=== PATIENT | male | born 1975 | race Caucasian/White ===

== ENCOUNTER 2017-12-04 14:35 | Emergency (ER) | payer SELFPAY ==
[~2017-12-04] VITALS: Ht 167.6 cm; Wt 100.3 kg
[2017-12-04 14:39] VITALS: BP 211/98; PULSE 101; RESP 16; TEMP 97.3; O2SAT 97
[2017-12-04] MEDS ORDERED: NAPR220C22 PO (15:04)
[2017-12-04 15:09] VITALS: BP 149/81
[2017-12-04] MEDS ORDERED: SODIUM CHLORIDE 0.9% FLUSH 10 ML FLUSH IVF PRN (16:00)
[2017-12-04] MEDS ORDERED: ASPIRIN 81 MG CHEW TAB CHEW ONE (16:00)
--- NOTE | 2017-12-04 16:13 | PD ---
HPI Chief Complaint: Pain: Acute or Chronic Time Seen by Provider: 15:49 Travel History International Travel<30 days: No Contact w/Intl Traveler<30days: No Traveled to known affect area: No History of Present Illness HPI 42-year-old male here for evaluation of left upper back and left flank pain. Patient reports that he has had this pain intermittently for the last week and reports that it usually occurs after eating lunch. He describes the pain as pressure, radiates to his anterior left chest, constant, worse with movements, improved with rest. He denies trauma. No fevers or recent illness. No cough or hemoptysis. No urinary symptoms. He quit smoking 2 years ago after smoking for 14 years. No known history of cardiac disease. No family history of cardiac disease. No history of DVT or PE. No paresthesias or motor deficits. PFSH Past Medical History Hx Anticoagulant Therapy: No Diabetes: No Diminished Hearing: No Influenza Vaccination: No ?: Not Past Surgical History Surgical History: No Previous Surgery Social History Alcohol Use: Yes Tobacco Use: No Allergies-Medications (Allergen,Severity, Reaction): Coded Allergies: No Known Allergies (Unverified , 12/04/17) Reported Meds & Prescriptions Reported Meds & Active Scripts Active Reported Aleve (Naproxen Sodium) 220 Mg Capsule 220 Mg PO DAILY Review of Systems Except as stated in HPI: all other systems reviewed are Neg Physical Exam Narrative GENERAL: Well-developed, well-nourished, awake, alert, comfortable, no apparent distress. SKIN: Focused skin assessment warm/dry. No rash. HEAD: Atraumatic. Normocephalic. EYES: Pupils equal and round. No scleral icterus. No injection or drainage. ENT: No nasal bleeding or discharge. Mucous membranes pink and moist. NECK: Trachea midline. No JVD. CARDIOVASCULAR: Regular rate and rhythm. No murmur appreciated. Distal pulses brisk and equal bilaterally. RESPIRATORY: No accessory muscle use. Clear to auscultation. Breath sounds equal bilaterally. GASTROINTESTINAL: Abdomen soft, non-tender, nondistended. MUSCULOSKELETAL: No obvious deformities. No clubbing. No cyanosis. No edema. No CVA tenderness. No midline vertebral step-off or tenderness. NEUROLOGICAL: Awake and alert. No obvious cranial nerve deficits. Motor grossly within normal limits. Normal speech. PSYCHIATRIC: Appropriate mood and affect; insight and judgment normal. Data Data Last Documented VS Vital Signs Date Time Temp Pulse Resp B/P (MAP) Pulse Ox O2 Delivery O2 Flow Rate FiO2 12/04/17 16:19 86 18 138/83 (101) 98 Room Air 12/04/17 14:39 97.3 Orders Orders Electrocardiogram (12/04/17 14:41) Complete Blood Count With Diff (12/04/17 15:55) Comprehensive Metabolic Panel (12/04/17 15:55) Act Partial Throm Time (Ptt) (12/04/17 15:55) Prothrombin Time / Inr (Pt) (12/04/17 15:55) Ckmb (Isoenzyme) Profile (12/04/17 15:55) Troponin I (12/04/17 15:55) Urinalysis - C+S If Indicated (12/04/17 15:55) Iv Access Insert/Monitor (12/04/17 15:55) Ecg Monitoring (12/04/17 15:55) Oximetry (12/04/17 15:55) Chest, Single Ap (12/04/17 15:55) Ct Pulmonary Angiogram (12/04/17 15:55) Sodium Chloride 0.9% Flush (Ns Flush) (12/04/17 16:00) Ct Abd/Pel W Iv Contrast(Rout) (12/04/17 ) Aspirin Chew (Aspirin Chew) (12/04/17 16:00) CKMB (12/04/17 16:08) CKMB% (12/04/17 16:08) Iohexol 350 Inj (Omnipaque 350 Inj) (12/04/17 17:04) Sodium Chlor 0.9% 1000 Ml Inj (Ns 1000 M (12/04/17 17:15) Ed Discharge Order (12/04/17 18:12) Labs Laboratory Tests Test 12/04/17 16:08 12/04/17 17:20 White Blood Count 7.7 TH/MM3 Red Blood Count 5.20 MIL/MM3 Hemoglobin 15.9 GM/DL Hematocrit 47.0 % Mean Corpuscular Volume 90.4 FL Mean Corpuscular Hemoglobin 30.5 PG Mean Corpuscular Hemoglobin Concent 33.8 % Red Cell Distribution Width 12.9 % Platelet Count 204 TH/MM3 Mean Platelet Volume 9.6 FL Neutrophils (%) (Auto) 56.9 % Lymphocytes (%) (Auto) 31.9 % Monocytes (%) (Auto) 8.2 % Eosinophils (%) (Auto) 2.4 % Basophils (%) (Auto) 0.6 % Neutrophils # (Auto) 4.4 TH/MM3 Lymphocytes # (Auto) 2.5 TH/MM3 Monocytes # (Auto) 0.6 TH/MM3 Eosinophils # (Auto) 0.2 TH/MM3 Basophils # (Auto) 0.0 TH/MM3 CBC Comment DIFF FINAL Differential Comment Prothrombin Time 9.8 SEC Prothromb Time International Ratio 1.0 RATIO Activated Partial Thromboplast Time 24.8 SEC Blood Urea Nitrogen 19 MG/DL Creatinine 1.40 MG/DL Random Glucose 96 MG/DL Total Protein 7.8 GM/DL Albumin 4.0 GM/DL Calcium Level 8.6 MG/DL Alkaline Phosphatase 120 U/L Aspartate Amino Transf (AST/SGOT) 25 U/L Alanine Aminotransferase (ALT/SGPT) 58 U/L Total Bilirubin 0.5 MG/DL Sodium Level 140 MEQ/L Potassium Level 3.7 MEQ/L Chloride Level 105 MEQ/L Carbon Dioxide Level 29.2 MEQ/L Anion Gap 6 MEQ/L Estimat Glomerular Filtration Rate 56 ML/MIN Total Creatine Kinase 167 U/L Creatine Kinase MB 0.6 NG/ML Troponin I LESS THAN 0.02 NG/ML Urine Color YELLOW Urine Turbidity CLEAR Urine pH 7.5 Urine Specific [place] GREATER THAN 1.035 Urine Protein NEG mg/dL Urine Glucose (UA) NEG mg/dL Urine Ketones NEG mg/dL Urine Occult Blood NEG Urine Nitrite NEG Urine Bilirubin NEG Urine Leukocyte Esterase NEG Urine Squamous Epithelial Cells 0-5 /hpf Microscopic Urinalysis Comment CULT NOT INDICATED MDM Medical Decision Making Medical Screen Exam Complete: Yes Emergency Medical Condition: Yes Interpretation(s) EKG: Sinus, rate 96, normal axis, normal intervals, no acute ischemic abnormality. Differential Diagnosis ACS, pneumothorax, peritonitis, PE, pneumonia, nephrolithiasis, ureterolithiasis , pyelonephritis, musculoskeletal pain Narrative Course Vital signs reviewed. CBC is unremarkable. CMP is remarkable for BUN 19, creatinine 1.4, GFR 56. I do not know his baseline. Cardiac enzymes are negative. UA is not suggestive of UTI. Chest x-ray: No acute disease. CT pulmonary angiogram: Negative for central PE. Mild compensated cardiomegaly. CT abdomen pelvis: Negative for acute process. The patient was made aware of all findings. He is resting comfortably. States his pain is improved after receiving aspirin in the emergency department. He reports history of heavy drinking, however he has significantly decreased the amount of alcohol he consumes. This is likely attributed to his mild cardiomegaly. Although the patient's symptoms have been going on for 1 week and they do not appear to be typical for ACS, I told the patient I would like to admit him to the hospital to the chest pain center for further cardiac evaluation. He does not want to be admitted at this time and states he is returning home to [place] tomorrow. He understands that there are risks to not being admitted including NH, , permanent disability. He was advised on when to return to the emergency department. He verbalizes understanding and agreement with plan. Diagnosis Primary Impression: Chest pain Qualified Codes: R07.9 - Chest pain, unspecified Referrals: Primary Care Physician 3 days Additional Instructions: Follow-up with a primary care physician this week. Return to the emergency department for worsening symptoms or any other concerns. Disposition: 01 DISCHARGE HOME Condition: Stable Teofilo Martin MD Dec 04, 2017 16:13
[2017-12-04 16:18] VITALS: O2SAT 98
[2017-12-04 16:19] VITALS: BP 138/83; PULSE 86; RESP 18; O2SAT 98
[2017-12-04 16:29] LABS: AUTOMATED NEUTROPHIL # 4.4 TH/MM3 (1.8-7.7); BASOPHIL % 0.6 % (0.0-2.0); EOSINOPHIL # 0.2 TH/MM3 (0-0.4); EOSINOPHIL % 2.4 % (0.0-4.0); HEMOGLOBIN 15.9 GM/DL (13.0-17.0); LYMPH % 31.9 % (9.0-44.0); LYMPHOCYTE # 2.5 TH/MM3 (1.0-4.8); MEAN CELL VOLUME 90.4 FL (80.0-100.0); MEAN CORPUSCULAR HEMOGLOBIN 30.5 PG (27.0-34.0); MEAN CORPUSCULAR HGB CONC 33.8 % (32.0-36.0); MEAN PLATELET VOLUME 9.6 FL (7.0-11.0); MONO % 8.2 % (0.0-8.0); MONOCYTE # 0.6 TH/MM3 (0-0.9); NEUT % 56.9 % (16.0-70.0); PLATELET COUNT 204 TH/MM3 (150-450); RED CELL DISTRIBUTION WIDTH 12.9 % (11.6-17.2); WHITE BLOOD COUNT 7.7 TH/MM3 (4.0-11.0)
[2017-12-04 16:36] LABS: CHLORIDE 105 MEQ/L (98-107); SODIUM (NA) 140 MEQ/L (136-145)
[2017-12-04 16:39] LABS: CALCIUM 8.6 MG/DL (8.5-10.1); PROTHROMBIN TIME - PATIENT 9.8 SEC (9.8-11.6)
[2017-12-04 16:40] LABS: BICARBONATE 29.2 MEQ/L (21.0-32.0); BLOOD UREA NITROGEN 19 MG/DL (7-18); GLUCOSE,RANDOM 96 MG/DL (74-106)
[2017-12-04 16:43] LABS: ALT (GPT) 58 U/L (12-78); AST (GOT) 25 U/L (15-37); GLOMERULAR FILTRATION RATE 56 ML/MIN (>89)
[2017-12-04 16:45] LABS: TOTAL BILIRUBIN ADULT 0.5 MG/DL (0.2-1.0); TOTAL PROTEIN 7.8 GM/DL (6.4-8.2)
[2017-12-04 16:46] LABS: ALKALINE PHOSPHATASE 120 U/L (45-117)
[2017-12-04 16:48] LABS: TROPONIN I LESS THAN 0.02 NG/ML (0.02-0.05)
[2017-12-04 17:00] VITALS: BP 168/90; PULSE 89; RESP 18; O2SAT 99
--- NOTE | 2017-12-04 17:00 | RADRPT ---
EXAM DATE/TIME: 12/04/2017 16:45 [facility] COMPARISON: No previous studies available for comparison. INDICATIONS : Chest pain. MEDICAL HISTORY : None. SURGICAL HISTORY : None. ENCOUNTER: Initial ACUITY: 1 day PAIN SCORE: 6/10 LOCATION: Bilateral chest FINDINGS: A single view of the chest demonstrates the lungs to be symmetrically aerated without evidence of mas s, infiltrate or effusion. The cardiomediastinal contours are unremarkable. Osseous structures are intact. CONCLUSION: No acute disease. Vadim Ohara MD FACR on December 04, 2017 at 16:57 Board Certified Radiologist. This report was verified electronically.
[2017-12-04] MEDS ORDERED: IOHEXOL 350 MG/ML 10 ML VIAL (for RAD DIAG) IVCONTRAST ONE (17:04)
--- NOTE | 2017-12-04 17:10 | RADRPT ---
EXAM DATE/TIME: 12/04/2017 16:53 [facility] COMPARISON: No previous studies available for comparison. INDICATIONS : Left upper back and chest pain. IV CONTRAST: 100 cc Omnipaque 350 (iohexol) IV ; Cumulative dose for multiple exams. RADIATION DOSE: 23.56 CTDIvol (mGy) MEDICAL HISTORY : None SURGICAL HISTORY : None. ENCOUNTER: Initial ACUITY: 1 week PAIN SCALE: 8/10 LOCATION: Left chest TECHNIQUE: Volumetric scanning of the chest was performed using a pulmonary embolism protocol MIP images were re constructed. Using automated exposure control and adjustment of the mA and/or kV according to patien t size, radiation dose was kept as low as reasonably achievable to obtain optimal diagnostic quality images. DICOM format image data is available electronically for review and comparison. Follow-up recommendations for detected pulmonary nodules are based at a minimum on nodule size and pa tient risk factors according to Fleischner Society Guidelines. FINDINGS: PULMONARY ARTERIES: No filling defects are seen in the pulmonary arteries through the segmental level. LUNGS: There is no consolidation or pneumothorax . No concerning pulmonary nodule is visualized. PLEURAE: There is no pleural thickening or pleural effusion. MEDIASTINUM: Mild compensated cardiomegaly MUSCULOSKELETAL: Within normal limits for patient age. MISCELLANEOUS: The visualized upper abdominal organs demonstrate no acute abnormality. CONCLUSION: Negative for central pulmonary emboli. Mild compensated cardiomegaly Vadim Ohara MD FACR on December 04, 2017 at 17:05 Board Certified Radiologist. This report was verified electronically.
[2017-12-04] MEDS ORDERED: SODIUM CHLOR 0.9% 1000 ML INJ 1,000 ML IV ONE (17:15)
--- NOTE | 2017-12-04 17:35 | RADRPT ---
EXAM DATE/TIME: 12/04/2017 16:53 [facility] COMPARISON: No previous studies available for comparison. INDICATIONS : Left side abdomen pain. IV CONTRAST: 100 cc Omnipaque 350 (iohexol) IV ; Cumulative dose for multiple exams. ORAL CONTRAST: No oral contrast ingested. RADIATION DOSE: 21.09 CTDIvol (mGy) MEDICAL HISTORY : None SURGICAL HISTORY : None. ENCOUNTER: Initial ACUITY: 1 day PAIN SCALE: 2/10 LOCATION: Left abdomen TECHNIQUE: Volumetric scanning of the abdomen and pelvis was performed. Using automated exposure control and ad justment of the mA and/or kV according to patient size, radiation dose was kept as low as reasonably achievable to obtain optimal diagnostic quality images. DICOM format image data is available electro nically for review and comparison. FINDINGS: LOWER LUNGS: The visualized lower lungs are clear. LIVER: Homogeneous density without lesion. There is no dilation of the biliary tree. No calcified gallston es. SPLEEN: Normal size without lesion. PANCREAS: Within normal limits. KIDNEYS: Normal in size and shape. There is no mass, stone or hydronephrosis. ADRENAL GLANDS: Within normal limits. VASCULAR: There is no aortic aneurysm. BOWEL/MESENTERY: The stomach, small bowel, and colon demonstrate no acute abnormality. There is no free intraperitone al air or fluid. ABDOMINAL WALL: Within normal limits. RETROPERITONEUM: There is no lymphadenopathy. BLADDER: No wall thickening or mass. REPRODUCTIVE: Within normal limits. INGUINAL: There is no lymphadenopathy or hernia. MUSCULOSKELETAL: Within normal limits for patient age. CONCLUSION: Negative for acute process Vadim Ohara MD FACR on December 04, 2017 at 17:29 Board Certified Radiologist. This report was verified electronically.
[2017-12-04 17:46] LABS: BILIRUBIN, URINE NEG (NEG); BLOOD, URINE NEG (NEG); GLUCOSE,URINE NEG (NEG); KETONE, URINE NEG (NEG); NITRITE,URINE NEG (NEG); PH, URINE 7.5 (5.0-8.5); URINE LEUKOCYTE ESTERASE NEG (NEG)
[2017-12-04 18:06] LABS: URINE COLOR YELLOW (YELLW/STRAW)
[2017-12-04 18:07] LABS: SQUAMOUS EPITHELIAL CELL URINE 0-5 /hpf (0-5)
--- NOTE | 2017-12-05 00:45 | EKG ---
Date Performed: 12/04/2017 Time Performed: 14:46:58 PTAGE: 42 years EKG: Sinus rhythm NORMAL ECG NO PREVIOUS TRACING DOCTOR: Abilio Wilson Interpretating Date/Time 12/05/2017 00:43:48
== END 2017-12-04 18:34 | disposition home or self-care (01) ==
LOC: PHEFT 14:35
DX: R07.9 Chest pain, unspecified (principal); Z87.891 Personal history of nicotine dependence
CPT/HCPCS: 71045; 71275; 74177; 80053; 81001; 82550; 82552; 84484; 85025; 85610; 85730; 93005; 99285; J7030; Q9967